=== PATIENT | female | born 1955 | race Caucasian/White ===

== ENCOUNTER 2016-12-25 16:55 | Emergency (ER) | payer OTHER ==
[~2016-12-25] VITALS: Ht 170.2 cm; Wt 83.9 kg
[2016-12-25] MEDS ORDERED: IPRATROPIUM BROMIDE 0.5 MG/2.5 ML NEBU NEB ONE (18:00)
[2016-12-25] MEDS ORDERED: ALBUTEROL SULFATE 2.5 MG/3 ML NEBU NEB ONE (18:00)
[2016-12-25] MEDS ORDERED: ALBUTEROL SULFATE 2.5 MG/ 0.5 ML NEBU ONE (18:13)
[2016-12-25] MEDS ORDERED: IPRATROPIUM BROMIDE 0.5 MG/2.5 ML NEBU ONE (18:13)
[2016-12-25 18:35] LABS: BASOPHILS % (AUTO) 0.2 % (0.0-2.0); EOSINOPHILS # (AUTO) 0.1 K/uL (0.0-0.7); EOSINOPHILS % (AUTO) 0.7 % (0.0-7.0); HEMATOCRIT 40.6 % (37-47); HEMOGLOBIN 13.4 G/DL (12.0-16.0); MEAN CORPUSCULAR HEMOGLOBIN 29.7 UUG (27.0-31.0); MEAN CORPUSCULAR HGB CONC 33 g/dL (32.0-37.0); MEAN CORPUSCULAR VOLUME 89.7 FL (81.0-99.0); MONOCYTES # (AUTO) 0.8 K/UL (0.1-1.30); MONOCYTES % (AUTO) 10.2 % (0.0-11.0); NEUTROPHILS # (AUTO) 5.3 K/UL (1.8-8.9); NEUTROPHILS % (AUTO) 63.9 % (38.5-71.5); PLATELET COUNT (AUTO) 295 K/UL (150-450); RED BLOOD CELL COUNT(AUTO) 4.53 MIL/UL (4.2-5.4); WHITE BLOOD COUNT (AUTO) 8.2 K/UL (4.0-11.2)
[2016-12-25 18:43] LABS: BILIRUBIN,DIRECT 0.1 mg/dL (0.0-0.2); BILIRUBIN,TOTAL 0.3 mg/dL (0.2-1.0); POTASSIUM 3.9 mmol/L (3.5-5.1); TOTAL PROTEIN, SERUM 7.8 g/dL (6.4-8.2)
--- NOTE | 2016-12-25 19:13 | NUR ---
Patient discharged to home in stable conditon. Written and verbal after care instructions given. Patient verbalizes understanding of instructions.pt walks in steady gait. pt says feels better after the breathing tx.
[2016-12-25 19:15] VITALS: BP 141/81
== END 2016-12-25 19:16 | disposition home or self-care (01) ==
LOC: ER 16:58
DX: J44.1 Chronic obstructive pulmonary disease with (acute) exacerbation (principal); J44.0 Chronic obstructive pulmonary disease with (acute) lower respiratory infection; J20.8 Acute bronchitis due to other specified organisms; B96.89 Other specified bacterial agents as the cause of diseases classified elsewhere; I10 Essential (primary) hypertension; E78.00 Pure hypercholesterolemia, unspecified; I25.2 Old myocardial infarction; Z95.5 Presence of coronary angioplasty implant and graft; F17.200 Nicotine dependence, unspecified, uncomplicated
CPT/HCPCS: 36415; 71010; 80048; 80076; 83880; 84484; 85025; 85730; 93005; 94640; 99285; A4663; J3590; 70030-TC

== ENCOUNTER 2017-03-15 15:52 | Emergency (ER) | payer OTHER ==
[~2017-03-15] VITALS: Ht 162.6 cm; Wt 81.6 kg
[2017-03-15] MEDS ORDERED: LORAZEPAM 2 MG/1 ML VIAL IV ONE (16:15)
--- NOTE | 2017-03-15 16:23 | NUR ---
PT SON AT BEDSIDE.
[2017-03-15] MEDS ORDERED: LORAZEPAM 0.5 MG TABLET PO ONE (16:45)
[2017-03-15] MEDS ORDERED: LORAZEPAM 1 MG TABLET ONE (16:59)
[2017-03-15 17:28] LABS: BASOPHILS % (AUTO) 0.4 % (0.0-2.0); EOSINOPHILS # (AUTO) 0.1 K/uL (0.0-0.7); EOSINOPHILS % (AUTO) 1.2 % (0.0-7.0); HEMATOCRIT 41.2 % (31.2-41.9); HEMOGLOBIN 13.9 g/dL (10.9-14.3); LYMPHOCYTES # (AUTO) 2.2 K/uL (20.0-40.0); LYMPHOCYTES % (AUTO) 23.9 % (20.5-51.5); MEAN CORPUSCULAR HEMOGLOBIN 30.3 uug (24.7-32.8); MEAN CORPUSCULAR HGB CONC 34 g/dL (32.3-35.6); MEAN CORPUSCULAR VOLUME 89.9 fL (75.5-95.3); MONOCYTES # (AUTO) 0.7 K/uL (2.0-10.0); MONOCYTES % (AUTO) 7.5 % (0.0-11.0); NEUTROPHILS # (AUTO) 6.2 K/uL (1.8-8.9); PLATELET COUNT (AUTO) 246 K/uL (179-408); RED BLOOD CELL COUNT(AUTO) 4.58 MIL/uL (3.63-4.92); WHITE BLOOD COUNT (AUTO) 9.3 K/uL (3.8-11.8)
[2017-03-15 17:38] LABS: POTASSIUM 4.3 mmol/L (3.5-5.1)
[2017-03-15 17:55] LABS: BILIRUBIN,DIRECT 0.1 mg/dL (0.0-0.2); BILIRUBIN,TOTAL 0.3 mg/dL (0.2-1.0); TOTAL PROTEIN, SERUM 7.5 g/dL (6.4-8.2)
--- NOTE | 2017-03-15 18:28 | NUR ---
Patient discharged to home in stable conditon. Written and verbal after care instructions given. Patient verbalizes understanding of instructions.PT SAYS FEELS BETTER, PT WITH SON AND OTHER FAMILY MEMBER. PT WALKS IN STEADY GAIT. PT NOT DRIVING
[2017-03-15 18:36] VITALS: BP 132/71
== END 2017-03-15 18:36 | disposition home or self-care (01) ==
LOC: ER 15:53
DX: J44.1 Chronic obstructive pulmonary disease with (acute) exacerbation (principal); E78.00 Pure hypercholesterolemia, unspecified; F17.200 Nicotine dependence, unspecified, uncomplicated; I10 Essential (primary) hypertension; I25.2 Old myocardial infarction; Z95.5 Presence of coronary angioplasty implant and graft
CPT/HCPCS: 36415; 70030-TC; 71045; 83605; 85025; 85730; 87040; 93005; A4663

== ENCOUNTER 2018-03-18 11:51 | Emergency (ER) | payer OTHER ==
[~2018-03-18] VITALS: Ht 162.6 cm; Wt 83.9 kg
[2018-03-18 12:41] LABS: BASOPHILS % (AUTO) 0.6 % (0.0-2.0); EOSINOPHILS # (AUTO) 0.1 K/uL (0.0-0.7); HEMATOCRIT 39.9 % (31.2-41.9); HEMOGLOBIN 13.3 g/dL (10.9-14.3); LYMPHOCYTES # (AUTO) 1.7 K/uL (20.0-40.0); LYMPHOCYTES % (AUTO) 34.1 % (20.5-51.5); MEAN CORPUSCULAR HEMOGLOBIN 29.6 uug (24.7-32.8); MEAN CORPUSCULAR HGB CONC 33 g/dL (32.3-35.6); MEAN CORPUSCULAR VOLUME 88.5 fL (75.5-95.3); MONOCYTES # (AUTO) 0.4 K/uL (2.0-10.0); NEUTROPHILS # (AUTO) 2.6 K/uL (1.8-8.9); NEUTROPHILS % (AUTO) 53.3 % (38.5-71.5); PLATELET COUNT (AUTO) 208 K/uL (179-408); RED BLOOD CELL COUNT(AUTO) 4.51 MIL/uL (3.63-4.92)
[2018-03-18 12:50] LABS: POTASSIUM 3.7 mmol/L (3.5-5.1)
[2018-03-18] MEDS ORDERED: CARV25TA2 PO (12:50)
[2018-03-18] MEDS ORDERED: ASPI81TA44 PO (12:50)
[2018-03-18] MEDS ORDERED: AMLO5TAB9 PO (12:50)
[2018-03-18] MEDS ORDERED: CLOP75TA15 PO (12:50)
[2018-03-18] MEDS ORDERED: SERT50TA PO (12:50)
[2018-03-18] MEDS ORDERED: ATOR40TA PO (12:50)
[2018-03-18] MEDS ORDERED: LEVO125T8 PO (12:50)
[2018-03-18] MEDS ORDERED: MONT10TA22 PO (12:53)
[2018-03-18 13:02] LABS: BILIRUBIN,DIRECT 0.1 mg/dL (0.0-0.2); BILIRUBIN,TOTAL 0.5 mg/dL (0.2-1.0)
--- NOTE | 2018-03-18 16:48 | NUR ---
Patient discharged to home in stable conditon. Written and verbal after care instructions given. Patient verbalizes understanding of instructions.PT WALKS IN STEADY GAIT. PT SAYS FEELS BETTER. PT WITH FAMILY MEMBER, DENEIS ANY CP AT THIS POINT.
[2018-03-18 16:53] VITALS: BP 129/69
[2018-03-21] MEDS ORDERED: Isosorbide Mononitrate PO (13:13)
== END 2018-03-18 17:01 | disposition home or self-care (01) ==
LOC: ER 11:51
DX: I20.9 Angina pectoris, unspecified (principal); I25.10 Atherosclerotic heart disease of native coronary artery without angina pectoris; I25.2 Old myocardial infarction; J44.9 Chronic obstructive pulmonary disease, unspecified; F17.200 Nicotine dependence, unspecified, uncomplicated; Z79.82 Long term (current) use of aspirin; Z79.01 Long term (current) use of anticoagulants; Z79.899 Other long term (current) drug therapy
CPT/HCPCS: 36415; 70030-TC; 71045; 85025; 85730; 93005; A4663

== ENCOUNTER 2018-03-20 12:27 | Inpatient (IN) | payer OTHER ==
[~2018-03-20] VITALS: Ht 162.6 cm; Wt 79.4 kg
[~2018-03-20 12:27] MED LIST: AMLO5TAB9 PO; ASPI81TA44 PO; ATOR40TA PO; CARV25TA2 PO; CLOP75TA15 PO; LEVO125T8 PO; MONT10TA22 PO; SERT50TA PO
[2018-03-20] MEDS ORDERED: ALBUTEROL SULFATE 2.5 MG/3 ML NEBU NEB ONE (12:45)
[2018-03-20] MEDS ORDERED: ALBUTEROL SULFATE 2.5 MG/3 ML NEBU ONE (12:45)
--- NOTE | 2018-03-20 12:52 | NUR ---
PT IS IN ROOM #1A. DR RITCHIE EVALUATED THE PT.
[2018-03-20 12:53] LABS: BASOPHILS % (AUTO) 0.6 % (0.0-2.0); EOSINOPHILS # (AUTO) 0.1 K/uL (0.0-0.7); EOSINOPHILS % (AUTO) 2.6 % (0.0-7.0); HEMATOCRIT 43.4 % (31.2-41.9); HEMOGLOBIN 14.3 g/dL (10.9-14.3); LYMPHOCYTES # (AUTO) 1.9 K/uL (20.0-40.0); LYMPHOCYTES % (AUTO) 36.5 % (20.5-51.5); MEAN CORPUSCULAR HGB CONC 33 g/dL (32.3-35.6); MEAN CORPUSCULAR VOLUME 88.1 fL (75.5-95.3); MONOCYTES # (AUTO) 0.6 K/uL (2.0-10.0); NEUTROPHILS # (AUTO) 2.5 K/uL (1.8-8.9); NEUTROPHILS % (AUTO) 48.3 % (38.5-71.5); PLATELET COUNT (AUTO) 228 K/uL (179-408); RED BLOOD CELL COUNT(AUTO) 4.93 MIL/uL (3.63-4.92); WHITE BLOOD COUNT (AUTO) 5.3 K/uL (3.8-11.8)
[2018-03-20 12:59] LABS: CREATININE 0.8 mg/dL (0.6-1.3); POTASSIUM 4.1 mmol/L (3.5-5.1)
[2018-03-20] MEDS ORDERED: ISOSORBIDE MONONITRATE 30 MG TAB.SR.24H PO ONE (14:15)
--- NOTE | 2018-03-20 14:17 | NUR ---
REPORT WAS GIVEN TO CAMPUS ADMINISTRATOR. PT WAS TRANSFERED TO TELEMETRY ROOM #224.
--- NOTE | 2018-03-20 14:20 | NUR ---
RECEIVED PT FROM ER. PATIENT TRANSFERRED BY KATHIA SAFELY ONTO TELE FLOOR. TELEMETRY PLACED - SINUS RHYTHM. VITAL SIGNS TAKEN AND STABLE. NO SIGNS OF DISTRESS. DENIES ANY CHEST PAIN. STABLE AT THIS. IV-ACCESS INTACT. PATENT. WILL CONTINUE TO MONITOR THROUGHOUT SHIFT.
[2018-03-20 15:26] VITALS: BP 112/64
[2018-03-20] MEDS ORDERED: MAGNESIUM HYDROXIDE 30 ML LIQUID UDC PO PRN (17:45)
[2018-03-20] MEDS ORDERED: ZOLPIDEM 5 MG TABLET PO PRN (17:45)
[2018-03-20] MEDS ORDERED: ONDANSETRON 4 MG/2 ML VIAL IV PRN (17:45)
[2018-03-20] MEDS ORDERED: HYDROCODONE/APAP 5-325MG TABLET PO PRN (17:45)
[2018-03-20 17:52] VITALS: BP 114/67
[2018-03-20] MEDS: ATORVASTATIN 40 MG TABLET PO SCH (17:54)
[2018-03-20] MEDS: ACETAMINOPHEN 325 MG TABLET PO PRN (17:54)
[2018-03-20] MEDS: CARVEDILOL 25 MG TABLET PO SCH (17:54)
--- NOTE | 2018-03-20 18:18 | NUR ---
Patient stable at this time. no complaints of chest pain. SR on telemetry. Admission orders have been added by PURCHASING ENGINEER. Vital signs stable. ambulatory. AOx4. Consent signed by patient for stress tomorrow scheduled for 2pm tomorrow. NPO AFTER breakfast tomorrow. NO CAFFEINE starting now. safety measures implemented. will continue to monitor until end of shift.
--- NOTE | 2018-03-20 19:20 | NUR ---
RECEIVED PATIENT SITTING UP IN BED. FAMILY MEMBER ON BEDSIDE. IN NO ACUTE DISTRESS. DENIES ANY SOB. COMPLAINED OF MILD HEADACHE BUT TOLERABLE AT THIS TIME. IV SITE ON RIGHT UPPER ARM INTACT AND PATENT. NSR ON TELE AT 75/MIN. DENIES ANY CHEST PAIN. NEEDS ASSESSED AND ATTENDED TO. SAFETY MEASURE INITIATED AND CALL ALANIS WITHIN REACH.
[2018-03-20 20:00] VITALS: BP 104/51
[2018-03-20] MEDS ORDERED: MONTELUKAST SODIUM 10 MG TABLET PO SCH (21:00)
--- NOTE | 2018-03-20 21:00 | NUR ---
INFORMED LEADERSHIP RECRUITER TIMOTEO TROPONIN LEVEL OF 0.092, WITH NO NEW ORDER GIVEN.
[2018-03-21] VITALS: BP 99/55
[2018-03-21 04:00] VITALS: BP 127/63
[2018-03-21] MEDS: ACETAMINOPHEN 325 MG TABLET PO PRN ×2 (06:34→16:21)
--- NOTE | 2018-03-21 06:48 | NUR ---
SLEPT WELL LAST NIGHT. AOX4. IN NO ACUTE DISTRESS. DENIES ANY SOB. TYLENOL 650MG PO GIVE FOR COMPLAIN OF HEADACHE AND EFFECTIVE. DENIES ANY CHEST PAIN. IV SITE ON RIGHT UPPER ARM REMAINS INTACT. NSR ON TELE AT 65/MIN. NEEDS ATTENDED TO AND MET. SAFETY MEASURE MAINTAINED AND CALL ALANIS WITHIN REACH.
[2018-03-21] MEDS ORDERED: LEVOTHYROXINE SODIUM 125 MCG TABLET PO SCH (07:00)
--- NOTE | 2018-03-21 07:05 | NUR ---
Received report from acute care nurse nurse, patient in bed awake, no distress noted at this time, medications from bedside collected and taken down to the pharmacy.
[2018-03-21 07:24] LABS: CREATININE 0.7 mg/dL (0.6-1.3); MAGNESIUM 1.9 mg/dL (1.8-2.4); PHOSPHOROUS 2.9 mg/dL (2.5-4.9); POTASSIUM 3.9 mmol/L (3.5-5.1)
[2018-03-21] MEDS: CARVEDILOL 25 MG TABLET PO SCH ×2 (08:27→17:01)
[2018-03-21] MEDS ORDERED: ISOSORBIDE MONONITRATE 60 MG TAB.SR.24H PO SCH (09:00)
[2018-03-21] MEDS ORDERED: ASPIRIN EC 81 MG TABLET.DR PO SCH (09:00)
[2018-03-21] MEDS ORDERED: SERTRALINE HCL 50 MG TABLET PO SCH (09:00)
[2018-03-21] MEDS ORDERED: CLOPIDOGREL 75 MG TABLET PO SCH (09:00)
[2018-03-21] MEDS ORDERED: AMLODIPINE 5 MG TABLET PO SCH (09:00)
[2018-03-21 09:16] LABS: BASOPHILS % (AUTO) 0.3 % (0.0-2.0); EOSINOPHILS # (AUTO) 0.1 K/uL (0.0-0.7); EOSINOPHILS % (AUTO) 1.7 % (0.0-7.0); HEMATOCRIT 41.2 % (31.2-41.9); HEMOGLOBIN 13.9 g/dL (10.9-14.3); LYMPHOCYTES # (AUTO) 1.7 K/uL (20.0-40.0); MEAN CORPUSCULAR HEMOGLOBIN 29.8 uug (24.7-32.8); MEAN CORPUSCULAR HGB CONC 34 g/dL (32.3-35.6); MEAN CORPUSCULAR VOLUME 88.2 fL (75.5-95.3); MONOCYTES # (AUTO) 0.7 K/uL (2.0-10.0); MONOCYTES % (AUTO) 9.3 % (0.0-11.0); NEUTROPHILS # (AUTO) 4.7 K/uL (1.8-8.9); NEUTROPHILS % (AUTO) 64.7 % (38.5-71.5); PLATELET COUNT (AUTO) 224 K/uL (179-408); RED BLOOD CELL COUNT(AUTO) 4.67 MIL/uL (3.63-4.92); WHITE BLOOD COUNT (AUTO) 7.2 K/uL (3.8-11.8)
[2018-03-21 11:11] VITALS: BP 119/73
[2018-03-21] MEDS ORDERED: REGADENOSON 0.4 MG/5 ML PREFILLED SYR IV ONE (12:00)
[2018-03-21] MEDS ORDERED: Isosorbide Mononitrate PO (13:13)
[2018-03-21 15:20] VITALS: BP 110/64
[2018-03-21 17:01] VITALS: BP 147/96
[2018-03-21] MEDS: ATORVASTATIN 40 MG TABLET PO SCH (17:01)
--- NOTE | 2018-03-21 18:51 | NUR ---
patient informed physician that she is going to leave [facility] and go to another hospital ER. Physician notified this insurance underwriter, that patient is leaving, AMA form signed, iv removed and medications provided to patient. Patient being taken out by son.
== END 2018-03-21 18:55 | disposition left against medical advice (07) | DRG 206 ==
LOC: ER 12:27 → TELE 13:59
PROVIDERS: ADMIT Nurse Practitioner Acute Care; ATTEND Nurse Practitioner Acute Care
DX: T82.855A Stenosis of coronary artery stent, initial encounter (principal); I24.9 Acute ischemic heart disease, unspecified; E78.00 Pure hypercholesterolemia, unspecified; E78.5 Hyperlipidemia, unspecified; I25.10 Atherosclerotic heart disease of native coronary artery without angina pectoris; J44.9 Chronic obstructive pulmonary disease, unspecified; F17.211 Nicotine dependence, cigarettes, in remission; Z79.02 Long term (current) use of antithrombotics/antiplatelets; I25.2 Old myocardial infarction; I10 Essential (primary) hypertension; Z95.5 Presence of coronary angioplasty implant and graft; Z85.3 Personal history of malignant neoplasm of breast; Z79.82 Long term (current) use of aspirin
CPT/HCPCS: 36415; 70030-TC; 71045; 78452; 83735; 84100; 85025; 85730; 93005; 93307; A4663; A9502; G0378; J2405; J2785

== ENCOUNTER 2018-03-23 18:48 | Emergency (ER) | payer OTHER ==
[~2018-03-23] VITALS: Ht 162.6 cm; Wt 77.1 kg
[~2018-03-23 18:48] MED LIST changes: -AMLO5TAB9 PO; +Isosorbide Mononitrate PO
--- NOTE | 2018-03-23 19:14 | NUR ---
Patient discharged to home in stable conditon. Written and verbal after care instructions given to patient and family. Patient and family verbalized understanding of instructions. Distal pulses present post suturing of R groin puncture wound.
[2018-03-23] MEDS ORDERED: SODIUM BICARBONATE 4.2 % (NEUT) 5 ML VIAL TP ONE (19:30)
[2018-03-23] MEDS ORDERED: LIDOCAINE 1%-EPI 1:100,000 20 ML VIAL TP ONE (19:30)
== END 2018-03-23 19:20 | disposition home or self-care (01) ==
LOC: ER 18:48
DX: I97.610 Postprocedural hemorrhage of a circulatory system organ or structure following a cardiac catheterization (principal); J44.9 Chronic obstructive pulmonary disease, unspecified; F17.290 Nicotine dependence, other tobacco product, uncomplicated; Z79.82 Long term (current) use of aspirin; Z79.01 Long term (current) use of anticoagulants; Z79.899 Other long term (current) drug therapy
CPT/HCPCS: 99284; 99406; J3490 ×2; A4663

== ENCOUNTER 2018-03-29 20:06 | Emergency (ER) | payer OTHER ==
[~2018-03-29] VITALS: Ht 162.6 cm; Wt 86.2 kg
[~2018-03-29 20:06] MED LIST changes: +AMLO5TAB9 PO
--- NOTE | 2018-03-29 20:43 | NUR ---
Pt. ambulated into ED for suture removeal, pt. had angiogram performed on Sunday and had sutures placed on Sunday d/t bleeding at site,
--- NOTE | 2018-03-29 20:52 | NUR ---
Dr. Muller at bedside for MSE
--- NOTE | 2018-03-29 21:05 | NUR ---
Sutures removed at bedside Addendum: 03/29/18 at 2115 by BKKAREN Sutures removed at bedside by Dr. Muller, no bleeding noted, NAD
--- NOTE | 2018-03-29 21:16 | NUR ---
Patient discharged to home in stable conditon. Written and verbal after care instructions given. Patient verbalizes understanding of instructions. Pt. d/c per MD orders, d/c papers signed, all belongings w/ pt., ambulated off unite w/ steady gait accompanied by family, ID band removed, left in private vehicle, NAD
== END 2018-03-29 21:25 | disposition home or self-care (01) ==
LOC: ER 20:08
DX: Z48.01 Encounter for change or removal of surgical wound dressing (principal); J44.9 Chronic obstructive pulmonary disease, unspecified; F17.200 Nicotine dependence, unspecified, uncomplicated; Z79.82 Long term (current) use of aspirin; Z79.01 Long term (current) use of anticoagulants; Z79.899 Other long term (current) drug therapy
CPT/HCPCS: A4663